=== PATIENT | male | born 1965 | race Caucasian/White ===

== ENCOUNTER 2019-09-27 07:33 | Outpatient (CLI) | payer MEDICARE, SELFPAY ==
[2019-09-27 08:44] LABS: Alanine Aminotransferase 53 U/L (16-63); Albumin Level 3.4 g/dL (3.4-5.0); Alkaline Phosphatase 174 U/L (46-116); Anion Gap 10.9 mmol/L (7-16); Aspartate Amino Transferase 44 U/L (15-37); Bilirubin,Total 0.3 mg/dL (0.00-1.00); Blood Urea Nitrogen 17 mg/dL (7-18); Calcium 8.7 mg/dL (8.5-10.1); Carbon Dioxide 31 mmol/L (21-32); Chloride 105 mmol/L (98-108); Cholesterol 187 mg/dL (0-200); Estimated Glomerular Filt Rate > 60; Glucose 86 mg/dL (70-99); HDL Direct 69 mg/dL (40-60); LDL Cholesterol Calculated 86 mg/dL (<130); Osmolality Calculated 294 mOsm/kg (285-295); Potassium 4.9 mmol/L (3.5-5.1); Sodium 142 mmol/L (136-145); Total Protein 6.8 g/dL (6.4-8.2); Triglycerides 162 mg/dL (0-150)
[2019-09-27 08:49] LABS: HIV 1 P24 AG Negative (Negative); HIV 1/2 AB Negative (Negative)
[2019-09-29 04:16] LABS: Hepatitis B Surface Antigen Nonreactive (Nonreactive)
== END 2019-09-27 07:34 | disposition home or self-care (01) ==
PROVIDERS: PCP Family Medicine; Visit Provider Internal Medicine Cardiovascular Disease
DX: E78.5 Hyperlipidemia, unspecified (principal); B18.2 Chronic viral hepatitis C
CPT/HCPCS: 36415; 80053; 80061; 86703

== ENCOUNTER 2019-10-05 10:45 | Outpatient (CLI) | payer MEDICARE, MEDICAID, SELFPAY ==
--- NOTE | 2019-10-05 10:51 | ECHO_ITS ---
Patient Info Name: Gabino Barriga Age: 54 years : 1965 Gender: Male Ht: 69 in Wt: 135 lbs BSA: 1.72 m2 HR: 118 bpm BP: 159 / 98 mmHg Technical Quality: Excellent Exam Date: 10/05/2019 9:56 AM Exam Location: [facility] Patient Status: Outpatient Admit Date: 10/05/2019 Staff Ordering Physician: Otilio Hooks DO File Drawer Finisher: Agustina Luque RDCS Attending Provider: Otilio Hooks DO Referring Physician: Jessee AUGUSTIN; Exam Type: CA echo doppler color flow Study Info Indications I50.22 - Chronic systolic (congestive) heart failure Complete two-dimensional, color flow and Doppler transthoracic echocardiogram is performed. Strain analysis performed. History/Risk Factors Hypertension: Yes Dyslipidemia: Yes Congenital Heart Disease (CHD): No Myocardial Infarction (OK): No Chronic Lung Disease: No Obesity: No Renal Disease: No Coronary Artery Disease (CAD) No Congestive Heart Failure (CHF): Hx CHF Date of Last Tobacco Use: 10/05/2019 Diabetes Mellitus: No Tobacco Use: Current - Every Day If Any Current, Tobacco Type: Cigarettes If Current - Every Day \T\ Cigarettes, Amount: Light Tobacco Use (<10/day) Cerebrovascular Disease: No Family History: Coronary Artery Disease Deep Vein Thrombosis (DVT): None Dialysis: None Frailty Scale (CSHA): 3: Managing Well Cardiac Arrest: Out of Hospital Prior Interventions ICD: Yes Summary 1. Left ventricular chamber dimension is severely enlarged. 2. Left ventricular systolic function is severely reduced, estimated at 15-20%. 3. The left ventricular diastolic function is grade I diastolic dysfunction. 4. E/e' 17 is elevated. 5. Global longitudinal strain is abnormal at -9.9%. 6. Linear artifact in right ventricle suggestive of catheter(s), pacemaker lead(s), or ICD lead(s). 7. Left atrial chamber dimension is mildly enlarged. 8. There is trace aortic valve regurgitation. 9. There is mild mitral valve regurgitation. 10. There is mild tricuspid valve regurgitation. 11. No pulmonary hypertension, estimated pulmonary arterial systolic pressure is 33 mmHg. 12. There is trace pulmonic regurgitation. Recommendations * Smoking cessation counseling is recommended for this patient. Left Ventricle E/e' 17 is elevated. Global longitudinal strain is abnormal at -9.9%. Left ventricular chamber dimension is severely enlarged. Left ventricular systolic function is severely reduced, estimated at 15-20%. The left ventricular diastolic function is grade I diastolic dysfunction. Right Ventricle Linear artifact in right ventricle suggestive of catheter(s), pacemaker lead(s), or ICD lead(s). Right ventricular chamber dimension is normal. Right ventricular systolic function is normal. Left Atria Left atrial chamber dimension is mildly enlarged. Right Atria Right atrial chamber dimension is not well visualized. Aortic Valve The aortic valve is trileaflet. There is no aortic valve stenosis. There is trace aortic valve regurgitation. Pulmonic Valve There is trace pulmonic regurgitation. Mitral Valve There is no mitral valve stenosis. There is mild mitral valve regurgitation. Tricuspid Valve There is mild tricuspid valve regurgitation. No pulmonary hypertension, estimated pulmonary arterial systolic pressure is 33 mmHg. Pericardium/Pleural There is no pericardial effusion. Inferior Vena Cava Normal in
== END 2019-10-05 10:46 | disposition home or self-care (01) ==
LOC: CHSIMG 10:46
PROVIDERS: PCP Family Medicine; Visit Provider Internal Medicine Cardiovascular Disease
DX: I50.22 Chronic systolic (congestive) heart failure (principal)
CPT/HCPCS: 93306

== ENCOUNTER 2019-11-06 10:32 | Observation (INO) | payer MEDICARE, MEDICAID, SELFPAY ==
[2019-11-06] VITALS (8 sets, daily range): BP systolic 142–151; BP diastolic 40–92; PULSE 64–74; RESP 16–20; TEMP 36.4–36.5; O2SAT 96–100; BMI 18.0
--- NOTE | ~2019-11-06 | XR_ITS ---
EXAMINATION: XR chest 2V DATE: 11/06/2019 11:17 INDICATION: Cough. TECHNIQUE: Frontal and lateral views of the chest were obtained on 3 radiographs. COMPARISON: Chest single view 10/17/2018 FINDINGS: The chest demonstrates clear lungs without pneumonia, pleural effusion, or pneumothorax. Th e heart size is normal. There is a left chest pacer with lead in right ventricle. IMPRESSION: 1. No acute cardiopulmonary disease. Reviewed, dictated and finalized at location A.
--- NOTE | ~2019-11-06 | XR_ITS ---
EXAMINATION: XR chest 2V DATE: 11/07/2019 10:35 INDICATION: Epigastric pain TECHNIQUE: PA and lateral views of the chest are obtained. COMPARISON: 11/06/2019 FINDINGS: The lungs are free of acute opacities. There is no pleural effusion or pneumothorax. The ca rdiomediastinal silhouette is normal. There is mild thoracic spondylosis. Anterior wedge deformities of the mid and lower thoracic spine. 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 A healed le ft seventh rib fracture is noted. No orthopedic screw is seen in the proximal right humerus. IMPRESSION: 1. No acute cardiopulmonary abnormality. Reviewed, dictated and finalized at location A.
--- NOTE | ~2019-11-06 | CT_ITS ---
EXAMINATION: CT brain wo con DATE: 11/06/2019 11:17 INDICATION: Confusion. Somnolence. TECHNIQUE: Computed tomography (CT) of the head was performed without intravenous contrast. The mA wa s adjusted according to patient size. Iterative reconstruction technique was employed. The dose-lengt h product was 681.00 mGy-cm. COMPARISON: Head CT 10/19/2018 FINDINGS: There is an old infarct in posterior inferior right cerebellum. There is no intracranial he morrhage, acute infarction, or abnormal intracranial mass lesion. The ventricles are normal in size. There is mucosal thickening in the paranasal sinuses. There is thickening and sclerosis of the amaya of right maxillary sinus, consistent with chronic sinusitis. The mastoid air cells are normal. The or bits are normal. IMPRESSION: 1. Old infarct in right cerebellum. 2. Chronic sinusitis. Reviewed, dictated and finalized at location A.
--- NOTE | 2019-11-06 10:59 | ECG_ITS ---
Measurements Intervals [place] Rate: 74 P: 79 TX: 167 QRS: 79 QRSD: 146 T: -63 QT: 416 QTc: 462 Interpretive Statements SINUS RHYTHM LEFT BUNDLE BRANCH BLOCK BASELINE ARTIFACT- I, II, III, AVR, AVL, AVF, V1-V6 ABNORMAL ECG Electronically Signed On 11-06-2019 11:57:31 CDT by Otilio Hooks D.O.
[2019-11-06 11:01] LABS: Add Urine Microscopic? YES; Appearance Urine Clear (Clear); Bilirubin Urine Negative (Negative); Blood Urine Negative (Negative); Color Urine Yellow (Yellow); Glucose Urine UA Negative (Negative); Ketones Urine Negative (Negative); Leukocyte Esterase Ur Negative LEU/UL (Negative); Nitrate Urine Negative (Negative); Protein Urine Trace (Negative); Urobilinogen Urine 0.2 mg/dL (0.2-1.0)
[2019-11-06 11:04] LABS: Bacteria Urine Trace /hpf; RBC Urine None seen /hpf (0-2); Squamous Epithelial Cell Urine Few /hpf (Few); WBC Urine None seen /hpf (0-3)
[2019-11-06 11:05] LABS: Mucus Urine Few /lpf
[2019-11-06] MEDS: ONDANSETRON INJ 4 MG/2 ML VIAL IV PUSH (11:22)
[2019-11-06 11:38] LABS: Basophils Absolute Auto 0.09 K/mm3 (0.00-0.10); Basophils Percent Auto 1.3 % (0.0-1.0); Eosinophils Absolute Auto 0.42 K/mm3 (0.02-0.50); Eosinophils Percent Auto 5.8 % (1.0-6.0); Hematocrit 37.1 % (40.0-54.0); Hemoglobin 12.2 g/dL (14.0-18.0); Immature Granulocyte Absolute 0.03 K/mm3 (0.00-0.00); Immature Granulocyte Percent A 0.4 % (0.0-0.0); Lymphocytes Absolute Auto 1.46 K/mm3 (1.10-4.50); Lymphocytes Percent Auto 20.3 % (18.0-42.0); Mean Corpuscular HGB Conc 32.9 g/dL (32.0-36.0); Mean Corpuscular Hemoglobin 30.7 pg (27.0-31.0); Mean Corpuscular Volume 93.5 fL (78.0-102.0); Mean Platelet Volume 10.2 fl (8.7-11.0); Monocytes Absolute Auto 0.53 K/mm3 (0.10-0.90); Monocytes Percent Auto 7.4 % (2.0-11.0); Neutrophils Absolute Auto 4.7 K/mm3 (1.7-7.2); Neutrophils Percent Auto 64.8 % (50.0-70.0); Platelet Count Result 261 K/mm3 (150-420); Red Blood Count 3.97 M/mm3 (4.70-6.10); Red Cell Distribution Width 14.8 % (11.6-14.4); White Blood Count 7.2 K/mm3 (4.8-10.8)
[2019-11-06 11:55] LABS: BNP 292 pg/mL (0-100)
[2019-11-06 11:57] LABS: Alanine Aminotransferase 49 U/L (16-63); Albumin Level 3.2 g/dL (3.4-5.0); Alkaline Phosphatase 168 U/L (46-116); Aspartate Amino Transferase 45 U/L (15-37); Bilirubin,Total 0.3 mg/dL (0.00-1.00); Blood Urea Nitrogen 21 mg/dL (7-18); Carbon Dioxide 27 mmol/L (21-32); Chloride 104 mmol/L (98-108); Estimated Glomerular Filt Rate > 60; Glucose 87 mg/dL (70-99); Osmolality Calculated 294 mOsm/kg (285-295); Sodium 141 mmol/L (136-145); Thyroid Stimulating Hormone 1.05 uIU/mL (0.36-3.74); Total Protein 6.8 g/dL (6.4-8.2)
[2019-11-06 11:58] LABS: Troponin I < 0.02 ng/mL (0.00-0.056)
--- NOTE | 2019-11-06 12:08 | ED.AMS ---
HPI - Altered Mental Status General Chief Complaint: Altered Mental Status Stated Complaint: Ambulance Source: patient, family and EMS Mode of arrival: wheelchair Limitations: physical limitation History of Present Illness HPI narrative: This is a 54-year-old gentleman that presents from home via EMS with altered mental status, has a cough and some nausea with Epiduo episode of vomiting with some audible coarse breath sounds, currently there is no fever or chills no abdominal pain no chest pain, the patient appears comfortable as far as breathing is concerned but the does appear to be having some gurgling breath sounds upper respiratory area, has a history of COPD, CHF, history of cerebellar infarct in 2015 and a history of epilepsy since the age of 14. Also has a history of CHF on and appears to have an ejection fraction of 30% is currently on Coreg for that. And lisinopril as spironolactone. MD complaint: altered mental status Onset (ago): day(s) Timing confirmed by: family member Severity: moderate Consistency of symptoms: waxing and waning Context: seizure disorder Associated symptoms: cough and nausea/vomiting Related Data Home Medications Medication Instructions Recorded Confirmed albuterol sulfate 90 mcg/actuation 1 puff INHALATION Q4H PRN 08/28/19 11/06/19 aerosol inhaler atorvastatin 40 mg tablet 40 mg PO DAILY 08/28/19 11/06/19 carbamazepine 200 mg tablet 200 mg PO Q12H 08/28/19 11/06/19 esomeprazole magnesium 40 mg 40 mg PO BID cap 08/28/19 11/06/19 capsule,delayed release meclizine 12.5 mg tablet 12.5 mg PO TID PRN tablet 08/28/19 11/06/19 spironolactone 25 mg tablet 25 mg PO DAILY 08/28/19 11/06/19 albuterol sulfate 2.5 mg INHALATION Q4H PRN 11/06/19 11/06/19 carvedilol [Coreg] 6.25 mg PO BID 11/06/19 11/06/19 ergocalciferol (vitamin D2) 1,250 mcg PO 2XW 11/06/19 11/06/19 [id number]-uulkcxfdi-vbiznuil 1 inh INHALATION DAILY 11/06/19 11/06/19 [Trelegy Ellipta] lacosamide [Vimpat] 200 mg PO BID 11/06/19 11/06/19 lisinopril 2.5 mg PO DAILY 11/06/19 11/06/19 meloxicam 15 mg PO DAILY 11/06/19 11/06/19 montelukast [Singulair] 10 mg PO DAILY 11/06/19 11/06/19 nitroglycerin 0.4 mg SUBLINGUAL Q5-15M PRN 11/06/19 11/06/19 oxycodone 5 mg PO Q8H PRN 11/06/19 11/06/19 Allergies Allergy/AdvReac Type Severity Reaction Status Date / Time Penicillins Allergy Unknown Hives Verified 08/28/19 13:58 phenytoin Allergy Unknown Unknown Verified 08/28/19 13:58 Review of Systems Review of Systems: All systems reviewed & are unremarkable except as noted in HPI and below PMFSH Past Medical History Medical History Chronic systolic (congestive) heart failure COPD (chronic obstructive pulmonary disease) Dyslipidemia Epilepsy Hypertension ICD (implantable cardioverter-defibrillator) in place Family History Family History Mother Diabetes mellitus Hypertension Family history of cardiovascular disease Grandparent Family history of cardiac disorder Sibling Hypertension Patient's brother is in good health Family history of cardiovascular disease Family history of lymphoma Father Family history of malignant neoplasm Social History Social History Smoking status: Smoker, status unknown Exam Const: General: no acute distress and alert Nutritional Appearance: well nourished Limitations: altered mental status HENMT: Head: normal to inspection Eyes: Conjunctivae: conjunctivae normal Pupils: Equal, round and reactive pupils present EOM: EOMs intact bilaterally Neck: Neck: normal visual inspection and no lymphadenopathy Chest: Chest palpation & inspection: normal inspection of the chest and abnormal inspection of the chest Resp: Auscultation: rhonchi Cardio: Rate: regular rate Rhythm: regular rhythm GI: GI Palp: Yes Soft to p
[2019-11-06] MEDS: CLINDAMYCIN 600 MG/D5W 50 ML 600 MG/50 ML PIGGYBACK 100 MG IVPB ×2 (12:15→17:01)
--- NOTE | 2019-11-06 13:06 | PC.NURSE ---
PT ABLE TO COMPREHEND, SPEECH HAS RETURNED TO BASELINE. PT STATES ONLY C/O AT THIS TIME IS COUGH AND DIZZINESS. PT
[2019-11-06] MEDS: carBAMazepine 200 MG TABLET PO (13:25)
--- NOTE | 2019-11-06 14:37 | PC.NURSE ---
1400 white male to 89 from er with altered mental status. he is back to base level per er. alert and orient x's 2-3. no altered strange movements noted. oriented to room and call light. watches tv.
--- NOTE | 2019-11-06 14:48 | PM.IMHP ---
H&P: HPI History of Present Illness Chief complaint: Ambulance Narrative: Gabino Barriga is a 54 year old male THAT PRESENTED TO THE ED WITH ALTERED MENTAL STATUS CHANGE. PATIENT HAS A PAST MEDICAL HISTORY OF CONGESTIVE HEART FAILURE, COPD, DYSLIPIDEMIA, EPILEPSY, HYPERTENSION AN ICD IN PLACE. ACCORDING TO PATIENT THIS MORNING WAS MOM'S COOKING BREAKFAST HE WAS IN A CHAIR WATCHING TELEVISION AND COULD NO LONGER SPEAK, LOSS MOVEMENT AND CONTROL OF HIS UPPER AND LOWER EXTREMITIES AND BECAME SLIGHTLY CONFUSED. CALL TO HIS MOTHER CALL 911 FOR AMS AND WAS BROUGHT HERE. ACCORDING TO PATIENT HE HAS HAD THIS EPISODE SEVERAL TIMES IN THE PAST AND HAS WENT TO SEVERAL HOSPITALS AND THEY WERE UNABLE TO DETERMINE THE CAUSE OF HIS EPISODE. PATIENT NOTES THAT HE DID HAVE SOME VOMITING OCCASIONAL SHORTNESS OF BREATH AND VISUAL DISTURBANCE. WHILE IN THE ED A CHEST X-RAY WAS COMPLETED WHICH WAS UNREMARKABLE A CT OF THE HEAD WAS ALSO COMPLETED THAT SHOWED OLD INFARCT WITH CHRONIC SINUSITIS, TROPONIN WAS NEGATIVE, BNP 292, TSH WITHIN NORMAL LIMITS, LACTIC ACID WITHIN NORMAL LIMITS HIS AST WAS SLIGHTLY ELEVATED HE ALSO HAS ELEVATED AST IN THE PAST VITAL SIGN 66, 20, 97.7, 142/88, HIS LABS WERE NORMAL. IT IS BELIEVED THE PATIENT MAY HAVE POSSIBLY ASPIRATED. PATIENT WILL REMAIN IN HOSPITAL FOR OBSERVATION. DURING THIS ASSESSMENT HE DID COMPLAIN OF LOW ABDOMINAL PAIN. PATIENT IS CURRENTLY ABLE TO MOVE ALL EXTREMITIES HE DID NOTE THAT HIS VISION HAS CHANGED. HE IS UNABLE TO SEE THINGS AT A DISTANCE. PATIENT DENIES CP, PALPITATION, EXTREMITY NUMBNESS, LIGHTHEADNESS, DIZZINESS, CONSTIPATION, DIARRHEA, CHILLS OR FEVER. Review of Systems Constitutional: Constitutional: Denies frequent falls, Denies headache(s) and Denies poor appetite Cardiovascular: Cardiovascular: Denies chest pain, Denies chest pain at rest, Denies pedal edema, Denies irregular heart rhythm and Reports dyspnea Respiratory: Respiratory: Denies chest congestion, Denies pain with cough and Reports dyspnea Gastrointestinal: Gastrointestinal: Reports abdominal pain ( LOWER ABDOMINAL PAIN), Denies melena, Denies heartburn, Denies diarrhea, Denies loose stools, Reports nausea, Reports vomiting and Denies hematemesis Genitourinary: Genitourinary: Denies urinary frequency, Denies urinary hesitancy, Denies urinary incontinence and Denies urinary urgency Musculoskeletal: Musculoskeletal: Reports muscle weakness Integumentary/Breasts: Skin/Breast: Reports system reviewed and no additional complaints, except as docu Neurologic: Reports Neuro-related abnormal movements, Denies confusion, Denies vertigo, Denies dizziness, Denies syncope, Denies headache(s) and Reports Other visual disturbances Psychiatric: Psychiatric: Reports no additional psychiatric complaints, Denies anxiety, Denies confusion, Denies depression and Denies paranoia Endocrine: Endocrine: Reports no additional endocrine complaints Hematologic/Lymphatic: Hematologic/Lymphatic: Reports no additional hematologic/lymphatic complaints Allergic/Immunologic: Allergic/Immunologic: Reports no additional allergic/immunologic complaints PMFSH Past Medical History Medical History Chronic systolic (congestive) heart failure COPD (chronic obstructive pulmonary disease) Dyslipidemia Epilepsy Hypertension ICD (implantable cardioverter-defibrillator) in place Family History Family History Mother Diabetes mellitus Hypertension Family history of cardiovascular disease Grandparent Family history of cardiac disorder Sibling Hypertension Patient's brother is in good health Family history of cardiovascular disease Family history of lymphoma Father Family history of malignant neoplasm Social History Social History Smoking packs per day: 1 Smoking cigarettes per da
--- NOTE | 2019-11-06 15:38 | PHAR ---
10/26`08/17 15:40 - pt.'s mother is bringing in vimpat 200mg since pharmacy does not stock. still in process of verifying days of week pt takes the vitamin d, and if does in fact take twice/week. tls
[2019-11-06] MEDS: carvediloL 12.5 MG TABLET 6.25 MG PO (20:38)
[2019-11-07] VITALS (9 sets, daily range): BP systolic 98–136; BP diastolic 58–87; PULSE 68–100; RESP 18–20; TEMP 36.2–36.8; O2SAT 94–95
[2019-11-07] MEDS: carBAMazepine 200 MG TABLET PO ×2 (00:16→12:50)
[2019-11-07] MEDS: CLINDAMYCIN 600 MG/D5W 50 ML 600 MG/50 ML PIGGYBACK 100 MG IVPB ×2 (02:06→11:05)
--- NOTE | 2019-11-07 04:21 | PC.NURSE ---
Telemetry continues. No signs of discomfort noted.
--- NOTE | 2019-11-07 05:41 | PC.NURSE ---
Telemetry continues. Pt ambulated to BR, assist of one. Pt passed flatus, no BM.
[2019-11-07 05:59] LABS: Basophils Absolute Auto 0.08 K/mm3 (0.00-0.10); Basophils Percent Auto 1.4 % (0.0-1.0); Eosinophils Absolute Auto 0.34 K/mm3 (0.02-0.50); Eosinophils Percent Auto 5.9 % (1.0-6.0); Hematocrit 35.5 % (40.0-54.0); Hemoglobin 11.8 g/dL (14.0-18.0); Immature Granulocyte Absolute 0.02 K/mm3 (0.00-0.00); Immature Granulocyte Percent A 0.3 % (0.0-0.0); Lymphocytes Absolute Auto 1.61 K/mm3 (1.10-4.50); Lymphocytes Percent Auto 27.8 % (18.0-42.0); Mean Corpuscular HGB Conc 33.2 g/dL (32.0-36.0); Mean Corpuscular Hemoglobin 30.7 pg (27.0-31.0); Mean Corpuscular Volume 92.4 fL (78.0-102.0); Mean Platelet Volume 10.7 fl (8.7-11.0); Monocytes Absolute Auto 0.55 K/mm3 (0.10-0.90); Monocytes Percent Auto 9.5 % (2.0-11.0); Neutrophils Absolute Auto 3.2 K/mm3 (1.7-7.2); Neutrophils Percent Auto 55.1 % (50.0-70.0); Platelet Count Result 248 K/mm3 (150-420); Red Blood Count 3.84 M/mm3 (4.70-6.10); Red Cell Distribution Width 14.7 % (11.6-14.4); White Blood Count 5.8 K/mm3 (4.8-10.8)
[2019-11-07 06:17] LABS: Alanine Aminotransferase 43 U/L (16-63); Albumin Level 2.9 g/dL (3.4-5.0); Alkaline Phosphatase 147 U/L (46-116); Anion Gap 12.5 mmol/L (7-16); Aspartate Amino Transferase 41 U/L (15-37); Bilirubin,Total 0.3 mg/dL (0.00-1.00); Blood Urea Nitrogen 22 mg/dL (7-18); Calcium 8.1 mg/dL (8.5-10.1); Carbon Dioxide 28 mmol/L (21-32); Chloride 104 mmol/L (98-108); Estimated CRCL calculation 55 ml/min; Estimated Glomerular Filt Rate > 60; Glucose 84 mg/dL (70-99); Osmolality Calculated 294 mOsm/kg (285-295); Potassium 3.5 mmol/L (3.5-5.1); Sodium 141 mmol/L (136-145); Total Protein 6.1 g/dL (6.4-8.2)
--- NOTE | 2019-11-07 08:00 | PC.NURSE ---
Remains in bed for breakfast, denies dizzyness, no pain, occassional loose cough
[2019-11-07] MEDS: MONTELUKAST SODIUM 10 MG TABLET PO (09:22)
[2019-11-07] MEDS: ATORVASTATIN 40 MG TABLET PO (09:22)
[2019-11-07] MEDS: lisinopriL 5 MG TABLET 2.5 MG PO (09:23)
[2019-11-07] MEDS: carvediloL 12.5 MG TABLET 6.25 MG PO (09:23)
[2019-11-07] MEDS: SPIRONOLACTONE 25 MG TABLET PO (09:23)
[2019-11-07] MEDS: ISOSORBIDE MONONITRATE 30 MG TAB.ER.24H PO (09:24)
[2019-11-07] MEDS: LACOSAMIDE 200 MG TABLET PO (09:24)
[2019-11-07] MEDS: MELOXICAM 7.5 MG TABLET 15 MG PO (09:33)
--- NOTE | 2019-11-07 10:49 | PC.NURSE ---
SBA up to void, tolerated well, no dizzyness
--- NOTE | 2019-11-07 13:08 | PHAR ---
11/07/19 13:00 - SPOKE W/[facility] AND THEY DO HAVE RX ON FILE FOR ERGOCALCIFEROL 50,000U TWICE/WEEK. NURSE KIRSTY CONFIRMED PT TAKES ON WED AND WED. TLS
--- NOTE | 2019-11-07 13:09 | PHAR ---
11/07/19 09:00 - VERIFIFED PT.'S HOME MED LACOSAMIDE 200MG. TLS
--- NOTE | 2019-11-07 13:57 | P.DS_ITS ---
DS: Diagnosis Admitting Diagnosis Admitting Diagnosis: Pneumonitis due to inhalation of food and vomit <Daniella Huston NP - Last Filed: 11/07/19 17:45> Discharge Diagnosis (1) Aspiration pneumonia: Qualifiers: Aspiration pneumonia type: due to vomit Laterality: unspecified laterality Lung location: unspecified part of lung Qualified Code(s): J69.0 - Pneumonitis due to inhalation of food and vomit <Daniella Huston NP - Last Filed: 11/07/19 17:45> Code(s): J69.0 - Pneumonitis due to inhalation of food and vomit <Daniella Huston NP - Last Filed: 11/07/19 17:45> Status: Acute <Daniella Huston NP - Last Filed: 11/07/19 17:45> Assessment and Plan: * No evidence of Aspiratory pneumonia on his physical examination or on the chest x-ray today. * His white count remains within normal limits. No fevers noted. No cough noted. * Eating and drinking without coughing or any signs of aspiration concerns. * Discontinued the clindamycin * PATIENT WBC WITHIN NORMAL LIMITS * blood cultures remain pending. Troponins were negative. his urinalysis was without concern and without UTI signs. * He is COVID negative. * CHEST X-RAY admission was UNREMARKABLE * ACID WITHIN NORMAL LIMITS * WBC WITHIN NORMAL LIMITS * PATIENT AFEBRILE <Daniella Huston NP - Last Filed: 11/07/19 17:45> (2) Altered mental status: Code(s): R41.82 - Altered mental status, unspecified <Daniella Huston NP - Last Filed: 11/07/19 17:45> Status: Acute <Daniella Huston NP - Last Filed: 11/07/19 17:45> Assessment and Plan: * possibly related to choking episode or epilepsy related seizure or TIA or heart arrhythmia related to severe heart failure. * His head CT was okay except for an old right cerebellum infarct and chronic sinusitis. * He has an AICD in place because he has severe heart failure with an EF of 15-20%F * PATIENT HAS A HISTORY EPILEPSY * NEURO CHECKS Are within normal limits, orthostatic vital signs were all normal and very close to each other * CONTINUE home EPILEPSY MEDICATION * I do have a copy of his last ultrasound of the carotids dated September 2018. They showed that he had this done related to a TIA. At the time they had both had less than 50% stenosis to the right and left ICA. * I did order a carotid Doppler study to be completed outpatient, at the discharge today. * I instructed the patient and expect him to follow-up with his neurologist Dr. 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 <Daniella Huston NP - Last Filed: 11/07/19 17:45> (3) Epilepsy: Code(s): G40.909 - Epilepsy, unspecified, not intractable, without status epilepticus <Daniella Huston NP - Last Filed: 11/07/19 17:45> Status: Acute <Daniella Huston NP - Last Filed: 11/07/19 17:45> Assessment and Plan: * CONTINUE HOME MEDICATION * CT OF THE HEAD NEGATIVE * Needs to F/U with with neurologist Dr. Campo as well as butcher meat. * See above plans. <Daniella Huston NP - Last Filed: 11/07/19 17:45> (4) COPD (chronic obstructive pulmonary disease): Code(s): J44.9 - Chronic obstructive pulmonary disease, unspecified <Daniella Huston NP - Last Filed: 11/07/19 17:45> Status: Acute <Daniella Huston NP - Last Filed: 11/07/19 17:45> Assessment and Plan: * STABLE * CONTINUE INHALERS * Also note the plan for respiratory pneumonia. <Daniella Huston NP - Last Filed: 11/07/19 17:45> (5) ICD (implantable cardioverter-defibrillator) in place: Code(s):
--- NOTE | 2019-11-07 13:57 | PM.DS ---
DS: Diagnosis Admitting Diagnosis Admitting Diagnosis: Pneumonitis due to inhalation of food and vomit <Daniella Huston NP - Last Filed: 11/07/19 17:45> Discharge Diagnosis (1) Aspiration pneumonia: Qualifiers: Aspiration pneumonia type: due to vomit Laterality: unspecified laterality Lung location: unspecified part of lung Qualified Code(s): J69.0 - Pneumonitis due to inhalation of food and vomit <Daniella Huston NP - Last Filed: 11/07/19 17:45> Code(s): J69.0 - Pneumonitis due to inhalation of food and vomit <Daniella Huston NP - Last Filed: 11/07/19 17:45> Status: Acute <Daniella Huston NP - Last Filed: 11/07/19 17:45> Assessment and Plan: No evidence of Aspiratory pneumonia on his physical examination or on the chest x-ray today. His white count remains within normal limits. No fevers noted. No cough noted. Eating and drinking without coughing or any signs of aspiration concerns. Discontinued the clindamycin PATIENT WBC WITHIN NORMAL LIMITS blood cultures remain pending. Troponins were negative. his urinalysis was without concern and without UTI signs. He is COVID negative. CHEST X-RAY admission was UNREMARKABLE ACID WITHIN NORMAL LIMITS WBC WITHIN NORMAL LIMITS PATIENT AFEBRILE <Daniella Huston NP - Last Filed: 11/07/19 17:45> (2) Altered mental status: Code(s): R41.82 - Altered mental status, unspecified <Daniella Huston NP - Last Filed: 11/07/19 17:45> Status: Acute <Daniella Huston NP - Last Filed: 11/07/19 17:45> Assessment and Plan: possibly related to choking episode or epilepsy related seizure or TIA or heart arrhythmia related to severe heart failure. His head CT was okay except for an old right cerebellum infarct and chronic sinusitis. He has an AICD in place because he has severe heart failure with an EF of 15-20%F PATIENT HAS A HISTORY EPILEPSY NEURO CHECKS Are within normal limits, orthostatic vital signs were all normal and very close to each other CONTINUE home EPILEPSY MEDICATION I do have a copy of his last ultrasound of the carotids dated September 2018. They showed that he had this done related to a TIA. At the time they had both had less than 50% stenosis to the right and left ICA. I did order a carotid Doppler study to be completed outpatient, at the discharge today. I instructed the patient and expect him to follow-up with his neurologist Dr. 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 <Daniella Huston NP - Last Filed: 11/07/19 17:45> (3) Epilepsy: Code(s): G40.909 - Epilepsy, unspecified, not intractable, without status epilepticus <Daniella Huston NP - Last Filed: 11/07/19 17:45> Status: Acute <Daniella Huston NP - Last Filed: 11/07/19 17:45> Assessment and Plan: CONTINUE HOME MEDICATION CT OF THE HEAD NEGATIVE Needs to F/U with with neurologist Dr. Campo as well as steel hanger. See above plans. <Daniella Huston NP - Last Filed: 11/07/19 17:45> (4) COPD (chronic obstructive pulmonary disease): Code(s): J44.9 - Chronic obstructive pulmonary disease, unspecified <Daniella Huston NP - Last Filed: 11/07/19 17:45> Status: Acute <Daniella Huston NP - Last Filed: 11/07/19 17:45> Assessment and Plan: STABLE CONTINUE INHALERS Also note the plan for respiratory pneumonia. <Daniella Huston NP - Last Filed: 11/07/19 17:45> (5) ICD (implantable cardioverter-defibrillator) in place: Code(s): Z95.810 - Presence of automatic (implantable) cardiac defibrillator <Daniella Huston NP - Last Filed: 11/07/19 17:45> Status: Acute <Daniella Huston NP - Last Filed: 11/07/19 17:45> Assessment and Plan: in LEFT CHEST His vital signs have all been stable no complaint of ectopy, palpitations, heart flutteri
--- NOTE | 2019-11-07 14:25 | PC.NURSE ---
awaiting final discharge orders
--- NOTE | 2019-11-08 07:29 | P.PNCROSS_ITS ---
Event Note Event Note Event Note: For this patient encounter, I reviewed the PARQUETRY LAYER or PA documentation, treatment plan, and medical decision making; and I had [id number] time with this patient.
--- NOTE | 2019-11-08 07:29 | PM.EVENT ---
Event Note Event Note Event Note: For this patient encounter, I reviewed the PHYSICIAN PRACTICE MANAGER or PA documentation, treatment plan, and medical decision making; and I had [id number] time with this patient.
[2019-11-13 07:08] LABS: Carbamazepine Tegretol 13.4 mcg/mL (4.0-12.0)
== END 2019-11-07 16:15 | disposition home or self-care (01) ==
LOC: CHSED 12:15 → CHS2ND 12:25
PROVIDERS: Nurse Practitioner; Admitting Provider Emergency Medicine; Emergency Provider Emergency Medicine; PCP Family Medicine; Visit Provider Emergency Medicine
DX: J69.0 Pneumonitis due to inhalation of food and vomit (principal); I11.0 Hypertensive heart disease with heart failure; I50.20 Unspecified systolic (congestive) heart failure; J44.9 Chronic obstructive pulmonary disease, unspecified; G40.909 Epilepsy, unspecified, not intractable, without status epilepticus; E78.5 Hyperlipidemia, unspecified; Z95.810 Presence of automatic (implantable) cardiac defibrillator; Z86.73 Personal history of transient ischemic attack (TIA), and cerebral infarction without residual deficits
CPT/HCPCS: 36415; 70450; 71046; 80053; 80156; 81001; 83605; 83880; 84443; 84484; 85025; 87040; 93005; 96365; 96366; 96375; 97161; 97165; 99285; A9270; G0378; J2405

== ENCOUNTER 2020-02-25 17:18 | Emergency (ER) | payer MEDICARE, MEDICAID, SELFPAY ==
--- NOTE | ~2020-02-25 | CT_ITS ---
EXAMINATION: CT brain wo con DATE: 02/25/2020 17:53 INDICATION: Seizure. TECHNIQUE: Computed tomography (CT) of the head was performed without intravenous contrast. The dose- length product was 681.00 mGy-cm. The mA was adjusted according to patient size. Iterative reconstruc tion technique was employed. COMPARISON: CT dated 11/06/2019 FINDINGS: No acute intracranial hemorrhage, infarction, mass or mass effect. There are chronic right cerebellar infarctions. There are scattered mild periventricular and subcortical white matter changes , most likely related to small vessel ischemic disease (microangiopathy). No ventriculomegaly or midl ine shift. There is mucosal thickening of the maxillary and ethmoid sinuses. Mastoids are pneumatized . No depressed skull fractures. IMPRESSION: 1. No acute intracranial abnormality. 2: Chronic right cerebellar infarctions. 3: Chronic sinusitis. Reviewed, dictated and finalized at location A.
[2020-02-25 17:26] VITALS: BP 146/91; PULSE 94; RESP 16; TEMP 37.2; O2SAT 97
[2020-02-25] MEDS: SODIUM CHLORIDE 0.9% IV 1,000 ML 999 ML IV CONT (17:40)
[2020-02-25 18:23] LABS: Hematocrit 33.5 % (40.0-54.0); Hemoglobin 10.9 g/dL (14.0-18.0); Mean Corpuscular HGB Conc 32.5 g/dL (32.0-36.0); Mean Corpuscular Hemoglobin 31.5 pg (27.0-31.0); Mean Corpuscular Volume 96.8 fL (78.0-102.0); Mean Platelet Volume 9.6 fl (8.7-11.0); Platelet Count Result 242 K/mm3 (150-420); Red Blood Count 3.46 M/mm3 (4.70-6.10); Red Cell Distribution Width 14.9 % (11.6-14.4)
[2020-02-25 18:35] LABS: Add Urine Microscopic? YES; Appearance Urine Clear (Clear); Bilirubin Urine Negative (Negative); Blood Urine Negative (Negative); Color Urine Yellow (Yellow); Glucose Urine UA Negative (Negative); Ketones Urine Negative (Negative); Leukocyte Esterase Ur Negative (Negative); Nitrate Urine Negative (Negative); Protein Urine Trace (Negative); Urobilinogen Urine 0.2 mg/dL (0.2-1.0)
[2020-02-25 18:42] LABS: Amphetamine Screen Urine Negative (Negative); Barbiturate Screen Urine Negative (Negative); Benzodiazepines Screen Urine Negative (Negative); Cannabinoid Screen Urine Negative (Negative); Cocaine Screen Urine Negative (Negative); Methadone Screen Urine Negative (Negative); Opiate Screen Urine Negative (Negative); Phencyclidine Screen Urine Negative (Negative)
[2020-02-25 18:42] LABS: Alanine Aminotransferase 44 U/L (16-63); Albumin Level 2.9 g/dL (3.4-5.0); Alkaline Phosphatase 147 U/L (46-116); Anion Gap 5 mmol/L (8-16); Aspartate Amino Transferase 40 U/L (15-37); Bilirubin,Total 0.3 mg/dL (0.00-1.00); Blood Urea Nitrogen 17 mg/dL (7-18); Calcium 7.8 mg/dL (8.5-10.1); Carbon Dioxide 28 mmol/L (21-32); Chloride 109 mmol/L (98-108); Creatine Kinase 34 U/L (39-308); Estimated CRCL calculation 41 ml/min; Estimated Glomerular Filt Rate 57; Glucose 92 mg/dL (70-99); Osmolality Calculated 295 mOsm/kg (285-295); Potassium 3.8 mmol/L (3.5-5.1); Sodium 142 mmol/L (136-145); Total Protein 6.2 g/dL (6.4-8.2)
[2020-02-25 18:43] LABS: Bacteria Urine None seen /hpf; Mucus Urine None seen /lpf; RBC Urine None seen /hpf (0-2); Squamous Epithelial Cell Urine Rare /hpf (Few); WBC Urine None seen /hpf (0-3)
--- NOTE | 2020-02-25 18:50 | ED.SEIZURE ---
HPI - Seizure General Chief Complaint: Seizure Stated Complaint: ems arrival Source: patient Mode of arrival: ambulatory Limitations: no limitations History of Present Illness HPI Narrative: This is a 54-year-old gentleman presents with seizure activity prior to arrival arrival via EMS seizure activity was a a tonic clonic type activity witnessed by family lasting about 3 to 4 minutes with some what he believes is some small area where he bit his tongue, with no bowel or bladder dysfunction had some postictal confusion but currently the patient is stable and no additional or seizure activity. Denies any headache no nausea vomiting no blurry vision no chest pain, no shortness of breath or abdominal pain no fever chills. MD complaint: seizure Onset (ago): hour(s) Description of Episode: tonic-clonic movement Duration of episode: 3 -: minutes(s) Witnessed: Yes - by Bystander Trauma: No Seizure History: Yes Place: home Possible Precipitating Event: none Associated symptoms: denies other symptoms Treatments prior to arrival: none Related Data Home Medications Medication Instructions Recorded Confirmed atorvastatin 40 mg tablet 40 mg PO DAILY 08/28/19 02/25/20 carbamazepine 200 mg tablet 200 mg PO Q12H 08/28/19 02/25/20 esomeprazole magnesium 40 mg 40 mg PO BID cap 08/28/19 02/25/20 capsule,delayed release spironolactone 25 mg tablet 25 mg PO DAILY 08/28/19 02/25/20 Vimpat 200 mg PO BID 11/06/19 02/25/20 ergocalciferol (vitamin D2) 1,250 mcg PO 2XW 11/06/19 11/06/19 nitroglycerin 0.4 mg SUBLINGUAL Q5-15M PRN 11/06/19 02/25/20 carvedilol 12.5 mg PO BID 02/25/20 02/25/20 doxycycline hyclate 100 mg PO BID 02/25/20 02/25/20 lisinopril 10 mg PO DAILY 02/25/20 02/25/20 Allergies Allergy/AdvReac Type Severity Reaction Status Date / Time Penicillins Allergy Unknown Hives Verified 08/28/19 13:58 phenytoin Allergy Unknown Unknown Verified 11/06/19 12:24 cephalexin [From Keflex] Allergy Flushing Verified 11/06/19 12:24 tramadol [From Ultram] AdvReac Seizure Verified 11/06/19 12:24 Review of Systems Review of Systems: All systems reviewed & are unremarkable except as noted in HPI and below PMFSH Past Medical History Medical History Chronic systolic (congestive) heart failure COPD (chronic obstructive pulmonary disease) Dyslipidemia Epilepsy Hypertension ICD (implantable cardioverter-defibrillator) in place Family History Family History Mother Diabetes mellitus Hypertension Family history of cardiovascular disease Grandparent Family history of cardiac disorder Sibling Hypertension Patient's brother is in good health Family history of cardiovascular disease Family history of lymphoma Father Family history of malignant neoplasm Social History Social History Smoking packs per day: 1 Smoking cigarettes per day: 20.0 Years smoked: 30 Smoking pack-years: 30.00 Smoking status: Current every day smoker Tobacco type: cigarettes Second hand tobacco smoke exposure: No Alcohol intake: former Substance use type: marijuana Other substance usage details: quit drinking 30 yrs ago. marijuana on rare occasions. It's legal now Gender identity (if verbalized by the patient): Male Spiritual care concerns: No Exam Const: General: no acute distress Orientation/consciousness: patient oriented x3 HENMT: Head: normal to inspection Eyes: Conjunctivae: conjunctivae normal Pupils: Equal, round and reactive pupils present Neck: Neck: normal visual inspection, no lymphadenopathy and no meningeal signs Chest: Chest palpation & inspection: normal inspection of the chest Resp: Effort & Inspection: normal respiratory effort Auscultation: clear to auscultation bilaterally Cardio: Rate: regular rate Rhythm: regular rhythm
[2020-02-25 19:04] VITALS: BP 132/84; PULSE 79; RESP 16; O2SAT 97
== END 2020-02-25 19:10 | disposition home or self-care (01) ==
PROVIDERS: Emergency Provider Emergency Medicine; PCP Family Medicine
DX: G40.909 Epilepsy, unspecified, not intractable, without status epilepticus (principal)
CPT/HCPCS: 36415; 70450; 80053; 80307; 81001; 82550; 85027; 96360; 99283; 99284; J7030

== ENCOUNTER 2020-10-05 08:11 | Outpatient (CLI) | payer MEDICARE, SELFPAY ==
[2020-10-05 10:00] LABS: Alanine Aminotransferase 52 U/L (16-63); Albumin Level 3.4 g/dL (3.4-5.0); Alkaline Phosphatase 168 U/L (46-116); Anion Gap 7 mmol/L (8-16); Aspartate Amino Transferase 42 U/L (15-37); Bilirubin,Total 0.5 mg/dL (0.00-1.00); Blood Urea Nitrogen 23 mg/dL (7-18); Calcium 8.8 mg/dL (8.5-10.1); Carbon Dioxide 29 mmol/L (21-32); Chloride 101 mmol/L (98-108); Cholesterol 175 mg/dL (0-200); Estimated Glomerular Filt Rate 60; Glucose 82 mg/dL (70-99); HDL Direct 62 mg/dL (40-60); LDL Cholesterol Calculated 80 mg/dL (<130); Osmolality Calculated 286 mOsm/kg (285-295); Potassium 4.3 mmol/L (3.5-5.1); Sodium 137 mmol/L (136-145); Total Protein 6.7 g/dL (6.4-8.2); Triglycerides 166 mg/dL (0-150)
== END 2020-10-05 08:12 | disposition home or self-care (01) ==
LOC: CHSLAB 08:12
PROVIDERS: PCP Family Medicine; Visit Provider Internal Medicine Cardiovascular Disease
DX: E78.5 Hyperlipidemia, unspecified (principal)
CPT/HCPCS: 36415; 80053; 80061

== ENCOUNTER 2020-10-26 10:38 | Outpatient (CLI) | payer MEDICARE, MEDICAID, SELFPAY | END 2020-10-26 10:39 | disposition home or self-care (01) | LOC: CHSCOVIDVC 10:38 | PROVIDERS: PCP Family Medicine | DX: Z23 Encounter for immunization (principal) | CPT/HCPCS: 0011A; 91301 ==

== ENCOUNTER 2020-11-14 07:50 | Outpatient (CLI) | payer MEDICARE, SELFPAY ==
[2020-11-14 08:08] LABS: Basophils Absolute Auto 0.07 K/mm3 (0.00-0.10); Basophils Percent Auto 1.4 % (0.0-1.0); Eosinophils Absolute Auto 0.18 K/mm3 (0.02-0.50); Eosinophils Percent Auto 3.6 % (1.0-6.0); Hematocrit 39.2 % (40.0-54.0); Hemoglobin 13.1 g/dL (14.0-18.0); Immature Granulocyte Absolute 0.01 K/mm3 (0.00-0.00); Immature Granulocyte Percent A 0.2 % (0.0-0.0); Lymphocytes Absolute Auto 1.48 K/mm3 (1.10-4.50); Lymphocytes Percent Auto 29.2 % (18.0-42.0); Mean Corpuscular HGB Conc 33.4 g/dL (32.0-36.0); Mean Corpuscular Hemoglobin 31.3 pg (27.0-31.0); Mean Corpuscular Volume 93.6 fL (78.0-102.0); Mean Platelet Volume 10.4 fl (8.7-11.0); Monocytes Absolute Auto 0.36 K/mm3 (0.10-0.90); Monocytes Percent Auto 7.1 % (2.0-11.0); Neutrophils Percent Auto 58.5 % (50.0-70.0); Platelet Count Result 241 K/mm3 (150-420); Red Blood Count 4.19 M/mm3 (4.70-6.10); Red Cell Distribution Width 14.7 % (11.6-14.4); White Blood Count 5.1 K/mm3 (4.8-10.8)
[2020-11-14 09:20] LABS: Alanine Aminotransferase 54 U/L (16-63); Albumin Level 3.6 g/dL (3.4-5.0); Alkaline Phosphatase 182 U/L (46-116); Anion Gap 9 mmol/L (8-16); Aspartate Amino Transferase 46 U/L (15-37); Bilirubin,Total 0.5 mg/dL (0.00-1.00); Blood Urea Nitrogen 22 mg/dL (7-18); Carbon Dioxide 28 mmol/L (21-32); Chloride 102 mmol/L (98-108); Estimated Glomerular Filt Rate 58; Glucose 80 mg/dL (70-99); Osmolality Calculated 290 mOsm/kg (285-295); Potassium 4.1 mmol/L (3.5-5.1); Sodium 139 mmol/L (136-145)
[2020-11-14 09:22] LABS: CRP < 0.2 mg/dL (0.0-0.9)
[2020-11-14 09:37] LABS: HIV 1 P24 AG Negative (Negative); HIV 1/2 AB Negative (Negative)
[2020-11-18 19:19] LABS: Hepatitis B Surface Antigen Nonreactive (Nonreactive)
== END 2020-11-14 07:51 | disposition home or self-care (01) ==
LOC: CHSLAB 07:54
PROVIDERS: PCP Family Medicine; Visit Provider Internal Medicine
DX: T84.50XD Infection and inflammatory reaction due to unspecified internal joint prosthesis, subsequent encounter (principal); Z79.2 Long term (current) use of antibiotics; Z11.59 Encounter for screening for other viral diseases; B18.2 Chronic viral hepatitis C; B19.9 Unspecified viral hepatitis without hepatic coma
CPT/HCPCS: 36415; 80053; 85025; 86140; 86703

== ENCOUNTER 2020-11-23 10:17 | Outpatient (CLI) | payer MEDICARE, SELFPAY | END 2020-11-23 10:18 | disposition home or self-care (01) | LOC: CHSCOVIDVC 10:17 | PROVIDERS: PCP Family Medicine | DX: Z23 Encounter for immunization (principal) | CPT/HCPCS: 0012A; 91301 ==

== ENCOUNTER 2021-04-03 09:36 | Outpatient (CLI) | payer MEDICARE, MEDICAID, SELFPAY ==
--- NOTE | 2021-04-03 09:42 | ECHO_ITS ---
Patient Info Name: Gabino Barriga Age: 55 years : 1965 Gender: Male Ht: 68 in Wt: 106 lbs BSA: 1.50 m2 HR: 59 bpm BP: 169 / 98 mmHg Exam Date: 04/03/2021 9:45 AM Exam Location: [facility] Patient Status: Outpatient Admit Date: 04/03/2021 Staff Ordering Physician: Otilio Hooks DO Bark Peeler: Babar York RDCS, RT Attending Provider: Otilio Hooks DO Referring Physician: Jessee AUGUSTIN; Exam Type: CA echo doppler color flow Study Info Indications I50.9 - Heart failure, unspecified Complete two-dimensional, color flow and Doppler transthoracic echocardiogram is performed. Strain analysis performed. History/Risk Factors Hypertension: Yes Dyslipidemia: Yes Congenital Heart Disease (CHD): No Myocardial Infarction (ID): No Chronic Lung Disease: No Obesity: No Renal Disease: No Coronary Artery Disease (CAD) No Congestive Heart Failure (CHF): Hx CHF Date of Last Tobacco Use: 10/05/2019 Diabetes Mellitus: No Tobacco Use: Current - Every Day If Any Current, Tobacco Type: Cigarettes If Current - Every Day \T\ Cigarettes, Amount: Light Tobacco Use (<10/day) Cerebrovascular Disease: No Family History: Coronary Artery Disease Deep Vein Thrombosis (DVT): None Dialysis: None Frailty Scale (CSHA): 3: Managing Well Cardiac Arrest: Out of Hospital Prior Interventions ICD: Yes Summary 1. Complete two-dimensional, color flow and Doppler transthoracic echocardiogram is performed. 2. Left ventricular chamber dimension is severely enlarged. 3. Left ventricular systolic function is severely reduced, estimated at 20-25%. 4. The left ventricular diastolic function is grade I diastolic dysfunction. 5. E/e' 8 is minimally elevated. 6. Global longitudinal strain is abnormal at -9.5%. 7. Linear artifact in right ventricle suggestive of catheter(s), pacemaker lead(s), or ICD lead(s). 8. Left atrial chamber dimension is mildly enlarged. 9. Linear artifact in the right atrium suggestive of catheter(s), pacemaker lead(s), or ICD lead(s). 10. There is trace aortic valve regurgitation. 11. There is mild mitral valve regurgitation. 12. There is trace tricuspid valve regurgitation. 13. No pulmonary hypertension, estimated pulmonary arterial systolic pressure is 10 mmHg. 14. There is trace pulmonic regurgitation. 15. Dilated inferior vena cava with >50% collapse upon inspiration consistent with elevated right atrial pressure, 10 mmHg. Recommendations * Smoking cessation counseling is recommended for this patient. Left Ventricle E/e' 8 is minimally elevated. Global longitudinal strain is abnormal at -9.5%. Left ventricular chamber dimension is severely enlarged. Left ventricular systolic function is severely reduced, estimated at 20-25%. The left ventricular diastolic function is grade I diastolic dysfunction. Right Ventricle Right ventricular systolic function is normal and with normal TAPSE 2.3 cm. Linear artifact in right ventricle suggestive of catheter(s), pacemaker lead(s), or ICD lead(s). Right ventricular chamber dimension is normal. Left Atria Left atrial chamber dimension is mildly enlarged. Right Atria Linear artifact in the right atrium suggestive of catheter(s), pacemaker lead(s), or ICD lead(s). Right atrial chamber dimension is normal. Aortic Valve The aortic valve is trileaflet. There is no aortic valve stenosis. There is trace aortic valve regurgitation. Pulmonic
== END 2021-04-03 09:37 | disposition home or self-care (01) ==
LOC: CHSIMG 09:37
PROVIDERS: PCP Family Medicine; Visit Provider Internal Medicine Cardiovascular Disease
DX: I50.22 Chronic systolic (congestive) heart failure (principal)
CPT/HCPCS: 93306

== ENCOUNTER 2021-05-04 00:32 | Inpatient (IN) | payer OTHER, SELFPAY ==
[2021-05-04] VITALS (25 sets, daily range): BP systolic 126–165; BP diastolic 87–98; PULSE 70–84; RESP 16–24; TEMP 35.9–36.9; O2SAT 87–100; BMI 14.8
--- NOTE | ~2021-05-04 | CT_ITS ---
EXAMINATION: CT chest abdomen pelvis w con DATE: 05/04/2021 11:03 INDICATION: Right lower quadrant abdominal pain. Chest pain. TECHNIQUE: Computed tomography (CT) of the chest, abdomen, and pelvis was performed with 100 mL Omnip aque 350 intravenous contrast. Automated exposure control and iterative reconstruction technique were employed. The dose-length product was 241.43 mGy-cm. COMPARISON: Chest CT 05/18/2018 FINDINGS: CHEST CT: There is mild atelectasis bilaterally. There is mucous plugging in the lower lobes. There is a cluste r of tree-in-bud opacities in left upper lobe, consistent with inflammation versus infection. No pleu ral effusion. There is left ventricular enlargement of the heart. There are coronary artery calcifica tions. No pericardial effusion. Calcified right hilar lymph nodes are consistent with old granulomato us disease. There is a left chest pacer with lead in right ventricle. There is no pulmonary embolus. There is advanced osteoarthritis of the glenohumeral joints. There is an implant in proximal right hu merus. There is severe cervical spondylosis. There is moderate thoracic spondylosis. There are chroni c fractures of numerous vertebral bodies. ABDOMEN/PELVIS CT: The liver, gallbladder, pancreas, and adrenal glands are normal. Calcifications in the spleen are con sistent with old granulomatous disease. There is cortical thinning of the kidneys. There is diverticu losis of the colon without evidence of diverticulitis. The appendix is normal. There are no pathologi pradip enlarged lymph nodes. There is trace pelvic ascites. There is a supraumbilical ventral hernia c ontaining fat. There is moderate stenosis of the common femoral arteries bilaterally. There is severe stenosis of proximal right superficial femoral artery and moderate stenosis of proximal left superfi cial femoral artery. There is a chronic burst fracture of L4 vertebral body. IMPRESSION: 1. Mucous plugging in the lower lobes of the lungs with mild atelectasis bilaterally. Cluster of tree -in-bud opacities in left upper lobe, consistent with inflammation versus infection. 2. Peripheral arterial occlusive disease. 3. Supraumbilical ventral hernia containing fat. Reviewed, dictated and finalized at location A. FLATBED DRIVER IMPRESSION: 1. Mucous plugging in the lower lobes of the lungs with mild atelectasis bilate rally. Cluster of tree-in-bud opacities in left upper lobe, consistent with inf lammation versus infection. 2. Peripheral arterial occlusive disease. 3. Supraumbilical ventral hernia containing fat.
--- NOTE | ~2021-05-04 | XR_ITS ---
EXAMINATION: XR chest 1V portable DATE: 05/04/2021 01:12 INDICATION: Dyspnea TECHNIQUE: frontal view of the chest was obtained. COMPARISON: Chest radiograph dated 11/07/2019 FINDINGS: The lungs remain clear with no focal airspace opacities, pulmonary edema, pleural effusion or pneumot horax. The cardiomediastinal silhouette is normal. Single lead cardiac pacemaker/fibrillator with lona d tip near the apex of the right ventricle. Large pin within methylmethacrylate reapproximating the r ight humeral head where there. Old ununited fracture involving midportion of the greater tuberosity. Appearance suggests explantation of a prior arthroplasty. Severe left glenohumeral osteoarthritis. IMPRESSION: 1. No acute cardiopulmonary disease. Reviewed, dictated and finalized at location A. ONAL CONSULTANT
--- NOTE | 2021-05-04 00:50 | ECG_ITS ---
Measurements Intervals [place] Rate: 83 P: 52 MT: 181 QRS: 61 QRSD: 127 T: -72 QT: 393 QTc: 464 Interpretive Statements SINUS RHYTHM LEFT VENTRICULAR HYPERTROPHY AND ST-T CHANGE INFERIOR INFARCT, AGE INDETERMINATE BASELINE ARTIFACT- V1 ABNORMAL ECG Electronically Signed On 05-04-2021 20:08:04 [employer]ACLE FORMS DEVELOPER by Otilio Hooks D.O.
[2021-05-04 01:02] LABS: Lactic Acid Reflex 0.5 mmol/L (0.4-2.0)
[2021-05-04 01:04] LABS: D Dimer 0.49 mg/L (0.19-0.50)
--- NOTE | 2021-05-04 01:10 | ED.SOB ---
HPI - SOB/Dyspnea General Chief Complaint: Shortness of Breath/Dyspnea Stated Complaint: Shortness of Breath Source: patient and family Mode of arrival: ambulatory Limitations: no limitations History of Present Illness HPI Narrative: this is a 55-year-old gentleman with a history of CHF history of COPD seizures is currently a smoker presents via EMS with increased shortness of breath not oxygen dependent at home. Patient increasing shortness of breath overnight with some no chest pain no fever chills and no abdominal pain no flank pain. Patient denies having any chest pain no fever chills no nausea vomiting. of systolic dysfunction had an echocardiogram performed in March of 2021 showed an ejection fraction of 20 to 25% does have an ICD in place. MD elicited complaint: shortness of breath Pertinent past history: COPD and congestive heart failure Onset (ago): hour(s) Severity: moderate Exacerbating factors: lying flat Related Data Home Medications Medication Instructions Recorded Confirmed carbamazepine 200 mg tablet 400 mg PO BID 08/28/19 05/04/21 esomeprazole magnesium 40 mg 40 mg PO BID cap 08/28/19 05/04/21 capsule,delayed release spironolactone 25 mg tablet 25 mg PO DAILY 08/28/19 05/04/21 doxycycline hyclate 100 mg PO BID 02/25/20 05/04/21 albuterol sulfate 2 puff INHALATION Q4-6H PRN 05/04/21 05/04/21 aspirin 325 mg PO DAILY 05/04/21 05/04/21 atorvastatin 40 mg PO DAILY 05/04/21 05/04/21 lacosamide [Vimpat] 200 mg PO BID 05/04/21 05/04/21 Allergies Allergy/AdvReac Type Severity Reaction Status Date / Time Penicillins Allergy Unknown Hives Verified 03/31/21 13:38 phenytoin Allergy Unknown Unknown Verified 03/31/21 13:38 cephalexin [From Keflex] Allergy Flushing Verified 03/31/21 13:38 tramadol [From Ultram] AdvReac Seizure Verified 03/31/21 13:38 Review of Systems Review of Systems: All systems reviewed & are unremarkable except as noted in HPI and below PMFSH Past Medical History Medical History (Reviewed 05/04/21 @ 01:12 ELECTRONIC COMPONENTS ASSEMBLER by Constantino Espinosa MD) Chronic systolic (congestive) heart failure COPD (chronic obstructive pulmonary disease) Dyslipidemia Epilepsy Hypertension ICD (implantable cardioverter-defibrillator) in place Surgical History Surgical History (Reviewed 05/04/21 @ 01:12 ELECTRONIC COMPONENTS ASSEMBLER by Constantino Espinosa MD) History of bilateral cataract extraction Family History Family History (Reviewed 05/04/21 @ 01:12 ELECTRONIC COMPONENTS ASSEMBLER by Constantino Espinosa MD) Mother Diabetes mellitus Hypertension Family history of cardiovascular disease Grandparent Family history of cardiac disorder Sibling Hypertension Patient's brother is in good health Family history of cardiovascular disease Family history of lymphoma Father Family history of malignant neoplasm Social History Social History (Reviewed 05/04/21 @ 01:12 ELECTRONIC COMPONENTS ASSEMBLER by Constantino Espinosa MD) Smoking packs per day: 1 Smoking cigarettes per day: 20.0 Years smoked: 30 Smoking pack-years: 30.00 Smoking status: Current every day smoker Tobacco type: cigarettes Second hand tobacco smoke exposure: No Alcohol intake: former Substance use type: marijuana Other substance usage details: quit drinking 30 yrs ago. marijuana on rare occasions. It's legal now Gender identity (if verbalized by the patient): Male Spiritual care concerns: No Exam Const: General: no acute distress Orientation/consciousness: patient oriented x3 HENMT: Head: normal to inspection Eyes: Conjunctivae: conjunctivae normal Pupils: Equal, round and reactive pupils present Neck: Neck: normal visual inspection and no lymphadenopathy Chest: Chest palpation & inspection: normal inspection of the chest Resp: Effort & Inspection: normal respiratory effort Auscultation: rhonchi, wheezes and diminished lung sounds Cardio: Jugular venous distension: no JVD Palpation: abnormal PMI Rate: regular rate Rhythm: regular rhythm Heart sounds: Murmur
[2021-05-04] MEDS: FUROSEMIDE INJ 40 MG/4 ML VIAL IV PUSH ×3 (01:17→17:55)
[2021-05-04 01:21] LABS: Base Excess ABG -0.7 mmol/L (0-2); HCO3 ABG 24.2 mmol/L (23-29); Oxygen Content ABG 16.7 %vol (16.0-22.0); Oxygen Saturation ABG 94.6 % (95-97); Oxyhemoglobin 92.7 % (94-100); PCO2 ABG 40.9 mmHg (35-45); PO2 ABG 76.5 mmHg (80-90); Total Hemoglobin 12.8 g/dL (12.0-18.0); pH ABG 7.39 (7.35-7.45)
[2021-05-04 01:22] LABS: Device NASAL CANNULA; Modified Allen's Test Pass; Site Drawn RIGHT RADIAL
[2021-05-04] MEDS: methylPREDNISolone SOD SUCC 125 MG VIAL IV PUSH (01:24)
[2021-05-04] MEDS: ALBUTEROL SULFATE NEB 1.25 MG/3 ML INH INHALATION (01:24)
[2021-05-04 01:28] LABS: Basophils Percent Auto 1.4 % (0.0-1.0); Eosinophils Absolute Auto 0.56 K/mm3 (0.02-0.50); Eosinophils Percent Auto 7.8 % (1.0-6.0); Hematocrit 39.2 % (40.0-54.0); Hemoglobin 13.1 g/dL (14.0-18.0); Immature Granulocyte Absolute 0.02 K/mm3 (0.00-0.00); Immature Granulocyte Percent A 0.3 % (0.0-0.0); Lymphocytes Absolute Auto 1.25 K/mm3 (1.10-4.50); Lymphocytes Percent Auto 17.3 % (18.0-42.0); Mean Corpuscular HGB Conc 33.4 g/dL (32.0-36.0); Mean Corpuscular Hemoglobin 31.1 pg (27.0-31.0); Mean Corpuscular Volume 93.1 fL (78.0-102.0); Mean Platelet Volume 9.9 fl (8.7-11.0); Monocytes Absolute Auto 0.48 K/mm3 (0.10-0.90); Monocytes Percent Auto 6.6 % (2.0-11.0); Neutrophils Absolute Auto 4.8 K/mm3 (1.7-7.2); Neutrophils Percent Auto 66.6 % (50.0-70.0); Platelet Count Result 282 K/mm3 (150-420); Red Blood Count 4.21 M/mm3 (4.70-6.10); Red Cell Distribution Width 14.6 % (11.6-14.4); White Blood Count 7.2 K/mm3 (4.8-10.8)
[2021-05-04] MEDS: MORPHINE SULFATE (*CRX) 4 MG/ML INJ IV PUSH (01:40)
--- NOTE | 2021-05-04 01:45 | ADMGEN ---
This patient, Gabino Barriga, was admitted to 2nd Floor Room 226-2. Patient/family oriented to hospital policies and general routines including ID bracelet, bed and alarms, visiting hours, pain management, procedures, bathroom and other care routines, personal items, smoking policy, room service/diet, and visiting hours. Information on how to activate the Rapid Response Team has been discussed. Patient/Family are encouraged to report perceived risks to care and to ask questions if they do not understand what they are told or what they should do.
[2021-05-04 01:50] LABS: INR 1.1; Partial Thromboplastin Time 29.3 SEC (23.90-30.70); Prothrombin Time 11.9 Seconds (9.50-12.10)
[2021-05-04 01:51] LABS: Influenza Control Valid (Valid)
[2021-05-04 01:52] LABS: Alanine Aminotransferase 51 U/L (16-63); Alkaline Phosphatase 197 U/L (46-116); Anion Gap 10 mmol/L (8-16); Aspartate Amino Transferase 40 U/L (15-37); Bilirubin,Total 0.5 mg/dL (0.00-1.00); Blood Urea Nitrogen 22 mg/dL (7-18); Calcium 8.4 mg/dL (8.5-10.1); Carbon Dioxide 27 mmol/L (21-32); Chloride 103 mmol/L (98-108); Estimated CRCL calculation 41 ml/min; Estimated Glomerular Filt Rate > 60; Glucose 90 mg/dL (70-99); Magnesium 1.3 mg/dL (1.8-2.4); Osmolality Calculated 293 mOsm/kg (285-295); Sodium 140 mmol/L (136-145); Total Protein 6.8 g/dL (6.4-8.2); Troponin I 18.5 ng/L (0.00-60.4)
[2021-05-04 01:53] LABS: NT Pro B Type Natriuretic Pept 5669 pg/mL (0-125)
[2021-05-04] MEDS: MAGNESIUM SULF 2 GM/WATER 50ML 2 GM/50 ML BAG IVPB (01:54)
[2021-05-04] MEDS: IPRATROPIUM 0.5 MG/ALBUTEROL SULFATE 2.5 MG AMPUL.NEB 3 ML INHALATION ×3 (05:02→17:55)
[2021-05-04 05:28] LABS: Basophils Absolute Auto 0.08 K/mm3 (0.00-0.10); Basophils Percent Auto 1.2 % (0.0-1.0); Eosinophils Absolute Auto 0.14 K/mm3 (0.02-0.50); Eosinophils Percent Auto 2.1 % (1.0-6.0); Hematocrit 45.3 % (40.0-54.0); Hemoglobin 15.3 g/dL (14.0-18.0); Immature Granulocyte Absolute 0.02 K/mm3 (0.00-0.00); Immature Granulocyte Percent A 0.3 % (0.0-0.0); Lymphocytes Absolute Auto 0.52 K/mm3 (1.10-4.50); Lymphocytes Percent Auto 7.9 % (18.0-42.0); Mean Corpuscular HGB Conc 33.8 g/dL (32.0-36.0); Mean Corpuscular Hemoglobin 31.1 pg (27.0-31.0); Mean Corpuscular Volume 92.1 fL (78.0-102.0); Mean Platelet Volume 10.3 fl (8.7-11.0); Monocytes Absolute Auto 0.11 K/mm3 (0.10-0.90); Monocytes Percent Auto 1.7 % (2.0-11.0); Neutrophils Absolute Auto 5.7 K/mm3 (1.7-7.2); Neutrophils Percent Auto 86.8 % (50.0-70.0); Platelet Count Result 336 K/mm3 (150-420); Red Blood Count 4.92 M/mm3 (4.70-6.10); Red Cell Distribution Width 14.6 % (11.6-14.4); White Blood Count 6.6 K/mm3 (4.8-10.8)
[2021-05-04 05:58] LABS: Alanine Aminotransferase 57 U/L (16-63); Albumin Level 3.6 g/dL (3.4-5.0); Alkaline Phosphatase 236 U/L (46-116); Anion Gap 9 mmol/L (8-16); Aspartate Amino Transferase 46 U/L (15-37); Bilirubin,Total 0.6 mg/dL (0.00-1.00); Blood Urea Nitrogen 21 mg/dL (7-18); Calcium 9.1 mg/dL (8.5-10.1); Carbon Dioxide 31 mmol/L (21-32); Chloride 99 mmol/L (98-108); Estimated CRCL calculation 37 ml/min; Estimated Glomerular Filt Rate 57; Glucose 108 mg/dL (70-99); Osmolality Calculated 292 mOsm/kg (285-295); Potassium 4.4 mmol/L (3.5-5.1); Sodium 139 mmol/L (136-145); Total Protein 8.1 g/dL (6.4-8.2)
[2021-05-04 05:59] LABS: Magnesium 2.3 mg/dL (1.8-2.4); NT Pro B Type Natriuretic Pept 9135 pg/mL (0-125)
[2021-05-04] MEDS: carBAMazepine 200 MG TABLET 400 MG PO ×2 (08:46→17:55)
[2021-05-04] MEDS: ISOSORBIDE MONONITRATE 30 MG TAB.ER.24H BY MOUTH (08:47)
[2021-05-04] MEDS: PANTOPRAZOLE 40 MG TABLET PO ×2 (08:47→17:55)
[2021-05-04] MEDS: DOXYCYCLINE HYCLATE 100 MG TABLET PO ×2 (08:47→21:02)
[2021-05-04] MEDS: lisinopriL 10 MG TABLET BY MOUTH (08:47)
[2021-05-04] MEDS: ATORVASTATIN 40 MG TABLET PO (08:47)
[2021-05-04] MEDS: carvediloL 12.5 MG TABLET BY MOUTH ×2 (08:47→17:55)
[2021-05-04] MEDS: SPIRONOLACTONE 25 MG TABLET PO (08:47)
[2021-05-04] MEDS: methylPREDNISolone SOD SUCC 125 MG VIAL 60 MG IV PUSH (08:48)
[2021-05-04] MEDS: MORPHINE SULFATE (*CRX) 2 MG/ML INJ IV PUSH (08:48)
[2021-05-04] MEDS: FLUTICASONE/UMECLIDIN/VILANTER 100-62.5-25 MCG ELLIPTA 1 PUFF INHALATION (08:49)
--- NOTE | 2021-05-04 10:06 | PM.IMHP ---
H&P: HPI History of Present Illness Date/Time: 05/04/21 10:06 this is a 55-year-old male who presented to department with complaints of shortness of breath. Patient has a past medical history of congestive heart failure, COPD, hyperlipidemia, epilepsy, hypertension and ICD. According to patient's mother his memory has worsened for some time now he does currently see a neurologist and is being worked up for MS. Patient is a poor historian most information obtained is from medical records and his mother. The only thing patient can recall is he felt short of breath. He is alert to self location and the president he is not sure of the year. According to his mother last night while he was at home he yelled out and told her to call the hospital because he was short of breath. Patient mother is his primary care physician and she has been taking care of him for the last 6 years because his condition has deteriorated. Patient mother informed me that he does not drink a large amount of fluids throughout the day he drinks 2 cups of coffee and a coke but he not drink the complete can of Coke. Patient's vital signs 97.5, 70, 16, 100, 129/87, WBC 7.2, hemoglobin 13.1, hematocrit 39.2, platelets 282, sodium 140, potassium 4.0, BUN 22, creatinine 1.23, glucose 90 lactic acid 0.5, magnesium 1.3, AST 40, ALT 51, potassium 18.5, BNP 5669. Patient being admitted for COPD and CHF exacerbation. Patient continues to complain of abdominal pain will complete a CT he no longer is experiencing any shortness of breath. <WEI Mariscal - Last Filed: 05/04/21 11:07> Chief Complaint: Shortness of breath <WEI Mariscal - Last Filed: 05/04/21 11:07> Review of Systems Review of Systems: A 14 organ system Review of Systems was performed and pertinent positives included in the HPI, otherwise remaining ROS is negative. He actually patient here <WEI Mariscal - Last Filed: 05/04/21 11:07> [facility] Past Medical History Medical History: Medical History (Reviewed 05/04/21 @ 01:12 OUTSIDE MEDICAL SALES REPRESENTATIVE by Constantino Espinosa MD) Chronic systolic (congestive) heart failure COPD (chronic obstructive pulmonary disease) Dyslipidemia Epilepsy Hypertension ICD (implantable cardioverter-defibrillator) in place <WEI Mariscal - Last Filed: 05/04/21 11:07> Surgical History Surgical History: Surgical History (Reviewed 05/04/21 @ 01:12 OUTSIDE MEDICAL SALES REPRESENTATIVE by Constantino Espinosa MD) History of bilateral cataract extraction <WEI Mariscal - Last Filed: 05/04/21 11:07> Family History Family History: Family History Mother Diabetes mellitus Hypertension Family history of cardiovascular disease Grandparent Family history of cardiac disorder Sibling Hypertension Patient's brother is in good health Family history of cardiovascular disease Family history of lymphoma Father Family history of malignant neoplasm <WEI Mariscal - Last Filed: 05/04/21 11:07> Social History Social History: Social History (Reviewed 05/04/21 @ 01:12 OUTSIDE MEDICAL SALES REPRESENTATIVE by Constantino Espinosa MD) Smoking packs per day: 1 Smoking cigarettes per day: 20.0 Years smoked: 40 Smoking pack-years: 40.00 Smoking status: Current every day smoker Tobacco type: cigarettes Second hand tobacco smoke exposure: Yes Alcohol intake: never Substance use: current Substance use type: marijuana Other substance usage details: quit drinking 30 yrs ago. marijuana on rare occasions. It's legal now Last use: about a week ago Gender identity (if verbalized by the patient): Male Spiritual care concerns: No <WEI Mariscal - Last Filed: 05/04/21 11:07> Meds Home Medications and Allergies Home medications: Home Medications Medication Instructions Recorded Confirmed Type carbamazepine 200 mg tablet 400 mg PO BID 08/28/19 05/04/21 History esomeprazole magnesium
[2021-05-04] MEDS: LACOSAMIDE (*CRX) 200 MG TABLET PO ×2 (10:22→21:02)
--- NOTE | 2021-05-04 10:40 | PC.NURSE ---
PT HAS HAD EMESIS X2, 1ST EMESIS AFTER BREAKFAST, LOTS OF MUCOUS. INFORMED CHIEF OF PRODUCTION NINOSKA, N.O. ONDANSETRON 4MG IVP, GIVEN. ALSO REPORTED PATIENT CONTINUES TO COMPLAIN OF SEVERE PAIN, NOW TO MIDDLE OF BACK, LEFT SIDE, AND LOWER CHEST. HAD ADMINISTERED ORDERED MORPHINE PRIOR AND PATIENT WAS ABLE TO SLEEP, UPON AWAKENING REPORTING PAIN WENT FROM 8/10 TO 9/10. ABDOMINAL CT ORDERED.
[2021-05-04] MEDS: ONDANSETRON INJ 4 MG/2 ML VIAL IV PUSH (10:48)
--- NOTE | 2021-05-04 10:50 | PC.NURSE ---
TAKEN TO CT AT THIS TIME
--- NOTE | 2021-05-04 11:10 | PC.NURSE ---
RETURNED FROM CT. RESTING IN BED. WARM BLANKET PROVIDED. NO NAUSEA. TITRATED OFF OXYGEN, SPO2 ON ROOM AIR 97%. NO C/O SHORTNESS OF BREATH. MOTHER AT BEDSIDE AND AWARE OF PATIENTS UPDATED STATUSES.
--- NOTE | 2021-05-04 11:55 | PC.NURSE ---
SPOT CHECK SPO2 AFTER REMOVING OXYGEN. PT IN AND OUT OF SLEEP. SPO2 87%. REAPPLIED O2 AT 2LPM. MOTHER REMAINS AT BEDSIDE.
--- NOTE | 2021-05-04 12:07 | PC.NURSE ---
NO APPETITE FOR LUNCH, IM AFRAID ILL THROW IT UP. OFFERED JELLO. ACCEPTED. CONT TO MONITOR. REPORT FROM ABD CT STILL PENDING, MOTHER AWARE.
[2021-05-04] MEDS: ENOXAPARIN 40 MG/0.4 ML SYRINGE SUB-Q (13:02)
[2021-05-04] MEDS: methylPREDNISolone SOD SUCC 40 MG VIAL IV PUSH ×2 (14:14→21:04)
--- NOTE | 2021-05-04 20:16 | PC.NURSE ---
Patient alert and oriented x3 at this time. Call light in reach. Denies pain or SOB but states has some nausea. Refused Zofran.
[2021-05-04] MEDS: guaiFENesin 12 HR 600 MG TABCR 1200 MG PO (21:02)
[2021-05-04] MEDS: ACETAMINOPHEN 500 MG TABLET 1000 MG PO (21:10)
[2021-05-05] VITALS (7 sets, daily range): BP systolic 117–140; BP diastolic 66–92; PULSE 71–95; RESP 14–20; TEMP 36.6–36.8; O2SAT 88–99
[2021-05-05] MEDS: IPRATROPIUM 0.5 MG/ALBUTEROL SULFATE 2.5 MG AMPUL.NEB 3 ML INHALATION ×2 (00:33→05:36)
--- NOTE | 2021-05-05 00:54 | PC.NURSE ---
Patient 02 off-SPO2 88%. Up to 94% when fully awake and talking. refused to wear O2 when returned to bed after toileting.
[2021-05-05] MEDS: methylPREDNISolone SOD SUCC 40 MG VIAL IV PUSH (05:10)
[2021-05-05 05:13] LABS: Hematocrit 42.2 % (40.0-54.0); Hemoglobin 14.3 g/dL (14.0-18.0); Mean Corpuscular HGB Conc 33.9 g/dL (32.0-36.0); Mean Corpuscular Hemoglobin 31.1 pg (27.0-31.0); Mean Corpuscular Volume 91.7 fL (78.0-102.0); Mean Platelet Volume 10.3 fl (8.7-11.0); Platelet Count Result 327 K/mm3 (150-420); Red Cell Distribution Width 14.7 % (11.6-14.4); White Blood Count 7.5 K/mm3 (4.8-10.8)
[2021-05-05 05:38] LABS: Lactic Acid Reflex 1.5 mmol/L (0.4-2.0)
[2021-05-05 05:39] LABS: Alanine Aminotransferase 42 U/L (16-63); Albumin Level 3.3 g/dL (3.4-5.0); Alkaline Phosphatase 204 U/L (46-116); Anion Gap 11 mmol/L (8-16); Aspartate Amino Transferase 31 U/L (15-37); Bilirubin,Total 0.5 mg/dL (0.00-1.00); Blood Urea Nitrogen 32 mg/dL (7-18); Calcium 8.4 mg/dL (8.5-10.1); Carbon Dioxide 29 mmol/L (21-32); Chloride 95 mmol/L (98-108); Estimated CRCL calculation 22 ml/min; Estimated Glomerular Filt Rate 30; Glucose 134 mg/dL (70-99); NT Pro B Type Natriuretic Pept 11326 pg/mL (0-125); Osmolality Calculated 288 mOsm/kg (285-295); Potassium 3.6 mmol/L (3.5-5.1); Sodium 135 mmol/L (136-145); Total Protein 7.4 g/dL (6.4-8.2)
--- NOTE | 2021-05-05 08:10 | PC.NURSE ---
Pt complaining of jerking . He states that he usually has this before he has a grand mal seizure. Debby SALAZAR was notified.
[2021-05-05] MEDS: LORazepam INJ (*CRX) 2 MG/ML VIAL 0.5 MG IV PUSH (08:23)
--- NOTE | 2021-05-05 08:30 | PC.NURSE ---
Entered pt's room to give pt ativan. Pt began having seizure like activity. Ativan given. MARIE Guardado notified and came to bedside. Seizure activity lasted approximately 4o seconds. Pt continued to have anxious movements in the bed. At 833 pt became completely unconscious, bp 67/20. Pt pronounced at 0835 by MARIE Guardado.
--- NOTE | 2021-05-05 09:24 | PM.DDS ---
Discharge Summary Date and Time Date of : 05/05/21 Time of : 08:32 Provider Pronounced By: krunal whitfield NP Probable Cause of Probable Cause of : respiratory failure Summary Hospital Course: Admission:this is a 55-year-old male who presented to department with complaints of shortness of breath. Patient has a past medical history of congestive heart failure, COPD, hyperlipidemia, epilepsy, hypertension and ICD. According to patient's mother his memory has worsened for some time now he does currently see a neurologist and is being worked up for MS. Patient is a poor historian most information obtained is from medical records and his mother. The only thing patient can recall is he felt short of breath. He was alert to self location and the president he is not sure of the year. According to his mother last night while he was at home he yelled out and told her to call the hospital because he was short of breath. Patient mother is his primary care physician and she has been taking care of him for the last 6 years because his condition has deteriorated. Patient mother informed me that he does not drink a large amount of fluids throughout the day he drinks 2 cups of coffee and a coke but he not drink the complete can of Coke. Patient's vital signs 97.5, 70, 16, 100, 129/87, WBC 7.2, hemoglobin 13.1, hematocrit 39.2, platelets 282, sodium 140, potassium 4.0, BUN 22, creatinine 1.23, glucose 90 lactic acid 0.5, magnesium 1.3, AST 40, ALT 51, potassium 18.5, BNP 5669. Patient being admitted for COPD and CHF exacerbation. Patient continues to complain of abdominal pain will complete a CT he no longer is experiencing any shortness of breath. Today I was informed by patient that he was having involuntary jerking movements which usually occur before he has a grand mal seizure. Patient was in bed eating breakfast during this assessment and noted that he felt afraid and that he was going to call his mother. Patient scheduled to have his seizure medication also instructed nurse to give him Ativan. According to nurse when she walked into patient room with ativan patient was having seizure.I was at patient bedside shortly afterward and witnessed him having a grand mal seizure Ativan was given. Attempts were made to ensure patient was safe during his seizure.patient mother notified that she should come to our hospital and that the patient was having a seizure. patient had oxygen in place, at some point patient relaxed vital signs completed patient's sats were in the 70s to 80s oxygen in place, blood pressures 60s/20. Continue to monitor patient's vital signs patient became unresponsive, no signs of respiratory , heart sounds, verbal or painful stimuli, no pupil response to light, absent pulse. Patient pronounced at 8:35am 05/05/2021 Patient DNR Additional Data Confirmation of as documented by pronouncing clinician: Pupillary Reflex, Palpable Pulses, Response to Stimuli, Heart Tones and Breath Sounds Family: contacted Additional persons at bedside: social service technician Was code activated?: No
== END 2021-05-05 08:35 | disposition expired | DRG 190 ==
LOC: CHSED 00:35 → CHS2ND 01:18
PROVIDERS: Nurse Practitioner; Admitting Provider Emergency Medicine; Emergency Provider Emergency Medicine; PCP Family Medicine; Visit Provider Emergency Medicine
DX: J44.1 Chronic obstructive pulmonary disease with (acute) exacerbation (principal); I11.0 Hypertensive heart disease with heart failure; I50.22 Chronic systolic (congestive) heart failure; E78.5 Hyperlipidemia, unspecified; G40.909 Epilepsy, unspecified, not intractable, without status epilepticus; F17.210 Nicotine dependence, cigarettes, uncomplicated; Z95.810 Presence of automatic (implantable) cardiac defibrillator; I50.23 Acute on chronic systolic (congestive) heart failure; E87.8 Other disorders of electrolyte and fluid balance, not elsewhere classified; G40.409 Other generalized epilepsy and epileptic syndromes, not intractable, without status epilepticus
CPT/HCPCS: 36415; 36600; 71045; 71260; 74177; 80053; 82805; 83605; 83735; 83880; 84484; 85025; 85027; 85380; 85610; 85730; 87040; 87804; 93005; 94640; 97165; 99285; A9270; J0696; J1650; J1940; J2060; J2270; J2405; J2920; J2930; J3475; Q9967